=== PATIENT | female | born 1990 | race Caucasian/White ===

== ENCOUNTER 2016-08-25 14:11 | Emergency (ER) | payer MEDICAID, OTHER ==
[~2016-08-25] VITALS: Ht 154.9 cm; Wt 91.0 kg
[2016-08-25 15:51] VITALS: BP 125/72
[2016-08-25] MEDS ORDERED: PENICILLIN G BENZATHINE 1,200,000 UNITS/2ML SYR IM ONE (16:15)
== END 2016-08-25 16:51 | disposition home or self-care (01) ==
LOC: ER 14:11
DX: J03.90 Acute tonsillitis, unspecified (principal)
CPT/HCPCS: 96372; 99283; J0561; Z7610

== ENCOUNTER 2019-02-07 21:10 | Emergency (ER) | payer MEDICAID ==
[~2019-02-07] VITALS: Ht 167.6 cm; Wt 113.4 kg
[2019-02-07 23:12] VITALS: BP 122/76
== END 2019-02-07 23:15 | disposition home or self-care (01) ==
LOC: ER 21:10
DX: H66.92 Otitis media, unspecified, left ear (principal); Z98.890 Other specified postprocedural states
CPT/HCPCS: 99283